=== PATIENT | female | born 1940 | race Caucasian/White ===

== ENCOUNTER 2024-04-09 10:37 | Day surgery (SDC) | payer MEDICARE, OTHER ==
[~2024-04-09 10:37] MED LIST: Propofol 200 MG/20 ML SDV ONE
[2024-04-09] MEDS ORDERED: Sodium Chloride 0.9% 10 ML Syringe FLUSH PRN (11:00)
[2024-04-09] MEDS: Lactated Ringers 1,000 ML IV SCH (12:22)
[2024-04-09 13:43] VITALS: BP 125/72; PULSE 69
== END 2024-04-09 13:35 | disposition home or self-care (01) ==
LOC: LL.SDS 10:37
PROVIDERS: ATTEND Surgery
DX: K31.89 Other diseases of stomach and duodenum (principal); K57.30 Diverticulosis of large intestine without perforation or abscess without bleeding; K22.89 Other specified disease of esophagus; K21.00 Gastro-esophageal reflux disease with esophagitis, without bleeding; R63.4 Abnormal weight loss; R68.81 Early satiety; K64.8 Other hemorrhoids; R14.3 Flatulence; I10 Essential (primary) hypertension; J45.909 Unspecified asthma, uncomplicated; E78.00 Pure hypercholesterolemia, unspecified; Z88.0 Allergy status to penicillin; Z88.8 Allergy status to other drugs, medicaments and biological substances; Z91.09 Other allergy status, other than to drugs and biological substances; Z91.040 Latex allergy status; Z91.013 Allergy to seafood; Z88.2 Allergy status to sulfonamides; Z79.899 Other long term (current) drug therapy; Z79.82 Long term (current) use of aspirin
CPT/HCPCS: 00813; 99100; J2704; J7120